=== PATIENT | female | born 1935 | race African-American/Black ===

== ENCOUNTER 2016-11-21 15:13 | Emergency (ER) | payer MEDICARE, OTHER | END 2016-11-21 18:33 | disposition critical access hospital (66) | LOC: ER 15:13 | DX: R55 Syncope and collapse (principal); K21.9 Gastro-esophageal reflux disease without esophagitis; I10 Essential (primary) hypertension; E78.5 Hyperlipidemia, unspecified; G40.909 Epilepsy, unspecified, not intractable, without status epilepticus; F17.210 Nicotine dependence, cigarettes, uncomplicated; Z90.49 Acquired absence of other specified parts of digestive tract; Z90.710 Acquired absence of both cervix and uterus; Z79.02 Long term (current) use of antithrombotics/antiplatelets; Z79.899 Other long term (current) drug therapy; Z86.73 Personal history of transient ischemic attack (TIA), and cerebral infarction without residual deficits | CPT/HCPCS: 96360 ==

== ENCOUNTER 2016-11-21 15:13 | Observation (INO) | payer MEDICARE, OTHER ==
[~2016-11-21] VITALS: Ht 170.2 cm; Wt 56.7 kg
== END 2016-11-24 13:05 | disposition home or self-care (01) ==
LOC: ER 15:13 → MED 18:34
PROVIDERS: ADMIT Internal Medicine
DX: R55 Syncope and collapse (principal); N13.30 Unspecified hydronephrosis; I16.0 Hypertensive urgency; E78.5 Hyperlipidemia, unspecified; R41.82 Altered mental status, unspecified; Z86.73 Personal history of transient ischemic attack (TIA), and cerebral infarction without residual deficits; Z86.69 Personal history of other diseases of the nervous system and sense organs; Z79.02 Long term (current) use of antithrombotics/antiplatelets; Z79.899 Other long term (current) drug therapy; Z87.19 Personal history of other diseases of the digestive system
CPT/HCPCS: 36415; 93306; 95816; 96360; 96372; 96374; 97162-GP; 97166; G0378; J1650; J2060; Q9967